=== PATIENT | male | born 1955 | race African-American/Black ===

== ENCOUNTER 2017-10-03 09:37 | Emergency (ER) | payer SELFPAY ==
[2017-10-03] MEDS ORDERED: TETRACAINE HCL 0.5% 2ML OPTH ONE (10:51)
[2017-10-03] MEDS ORDERED: FLUORESCEIN SODIUM 0.6 MG/WRAP ONE (10:51)
--- NOTE | 2017-10-03 11:45 | ER ---
Nurse's Notes [facility] Name: Sae Guevara Age: 62 yrs Sex: Male : 1955 Arrival Date: 10/03/2017 Time: 09:39 Bed 26 Private MD: None, None Diagnosis: Conjunctivitis;Ocular pain, left eye Presentation: 10/03 09:57 Presenting complaint: Patient states: Redness, irritation, and light sensitivity to aj left eye for 2 days. Patient denies getting anything in his eye. Reports eyelid was crusted this AM. Transition of care: patient was not received from another setting of care. Onset of symptoms was October 01, 2017. Initial Sepsis Screen: Does the patient meet any 2 criteria? No. Patient's initial sepsis screen is negative. Does the patient have a suspected source of infection? No. Patient's initial sepsis screen is negative. Care prior to arrival: None. 09:57 Method Of Arrival: Ambulatory 09:57 Acuity: ROD 2 aj Triage Assessment: 09:58 General: Appears in no apparent distress. uncomfortable, Behavior is calm, cooperative, aj appropriate for age. Pain: Complains of pain in left eye. EENT: Sclera/Cornea are reddened in outer aspect of conjuctiva of left eye, iris of left eye and inner aspect of conjunctiva of left eye Reports pain in left eye. Neuro: Level of Consciousness is awake, alert, obeys commands, Oriented to person, place, time, situation, Appropriate for age. Respiratory: Airway is patent Respiratory effort is even, unlabored, Respiratory pattern is regular, symmetrical. Derm: Skin is intact, is healthy with good turgor, Skin is pink, warm \T\ dry. normal. Historical: - Allergies: 09:58 No Known Allergies; aj - Home Meds: 09:58 None [Active]; aj - PMHx: 09:58 Hypertension; aj - PSHx: :58 None; aj - Immunization history:: Adult Immunizations up to date. - Social history:: Smoking status: Patient/guardian denies using tobacco. - Family history:: not pertinent. Screenin:22 Abuse screen: Denies threats or abuse. Denies injuries from another. Nutritional aj1 screening: No deficits noted. Tuberculosis screening: No symptoms or risk factors identified. 12:00 Fall Risk None identified. iw Assessment: 10:22 General: Appears in no apparent distress. uncomfortable, Behavior is calm, cooperative, aj1 appropriate for age. Pain: Complains of pain in left eye Pain does not radiate. Pain currently is 8 out of 10 on a pain scale. Quality of pain is described as throbbing, Alleviated by darkness and keeping eye closed Aggravated by lights and opening his eye. Neuro: Level of Consciousness is awake, alert, obeys commands, Oriented to person, place, time, situation, Speech is normal, Facial symmetry appears normal. Cardiovascular: Patient's skin is warm and dry. Respiratory: Airway is patent Respiratory effort is even, unlabored, Respiratory pattern is regular, symmetrical. GI: No signs and/or symptoms were reported involving the gastrointestinal system. : No signs and/or symptoms were reported regarding the genitourinary system. EENT: Sclera/Cornea are reddened in outer aspect of conjuctiva of left eye, iris of left eye and inner aspect of conjunctiva of left eye Lid(s) swelling noted. Reports drainage from eye, waking up with eye crusted. Derm: No signs and/or symptoms reported regarding the dermatologic system. Skin is pink, warm \T\ dry. normal. Musculoskeletal: No signs and/or symptoms reported regarding the musculoskeletal system. Circulation, motion, and sensation intact. 12:00 Reassessment: Patient appears in no apparent distress at this time. Patient and/or iw family updated on plan of care and expected duration. Pain level reassessed. Patient is alert, oriented x 3, equal unlabored respirations, skin warm/dry/pink. Vital Signs: 09:58 BP 153 / 95; Pulse 60; Resp 18; Temp 98.4; Pulse Ox 98% on R/A; Weight 90.72 kg; Height aj 5 ft. 11 in. (180.34 cm); Pain 8/10; 09:58 Body Mass Index 27.89 (90.72 kg, 180.34 cm) ED Course: 09:39 Patient arrived in ED. mr 09:39 None, None is Private Physician. mr 09:58 Triage completed. aj 09:58 Arm band placed on left wrist. Patient placed in an exam room. aj 10:09 Stanley Plasencia MD is Attending Physician. snehal 10:22 Zulema Mcintosh RN is Primary Nurse. aj1 10:22 Patient has correct armband on for positive identification. Bed in low position. Call aj1 light in reach. Side rails up X 1. 10:22 No provider procedures requiring assistance completed. aj1 11:00 Assist provider with eye exam of left eye. using fluorescein stain, Performed by Stanley Plasencia MD Patient tolerated well. 11:45 Shai Bland MD is Referral Physician. [facility] 12:00 Patient did not have IV access during this emergency room visit. iw Administered Medications: 12:00 Drug: Tobrex 0.3 % 1 application Route: Ophthalmic; Site: left eye; iw Outcome: 11:45 Discharge ordered by . [facility] 12:01 Discharged to home ambulatory. iw 12:01 Condition: good 12:01 Discharge instructions given to patient, Instructed on discharge instructions, follow up and referral plans. pt advised to follow up in Dr. Bland's office when he leaves ER, pt verbalizes understanding Demonstrated understanding of instructions, follow-up care. 12:02 Patient left the ED. iw Signatures: Zulema Mcintosh RN RN ajAmaris Harper RN RN aj Anderson, Corey, MD MD cha Rivera, Maria mr Williams, Irene, RN RN iw
--- NOTE | 2017-10-03 11:46 | EDPHYS ---
Physician Documentation [facility] Name: Sae Guevara Age: 62 yrs Sex: Male : 1955 Arrival Date: 10/03/2017 Time: 09:39 Bed 26 Private MD: None, None ED Physician Stanley Plasencia HPI: 10/03 10:51 This 62 yrs old Black Male presents to ER via Ambulatory with complaints of Eye snehal Swelling. 10:51 The patient is experiencing foreign body sensation, pain, redness, The patient snehal sustained Unknown. to the left eye. Onset: The symptoms/episode began/occurred 2 week(s) ago. Duration: the symptoms are continuous. Aggravated by blinking, closing eye, opening eye, rubbing, Alleviated by nothing. Associated signs and symptoms: Pertinent positives: None. Patient does not utilize any form of vision correction. Severity of symptoms: At their worst the symptoms were mild in the emergency department the symptoms are unchanged. The patient has not experienced similar symptoms in the past. Historical: - Allergies: 09:58 No Known Allergies; aj - Home Meds: :58 None [Active]; aj - PMHx: 09:58 Hypertension; aj - PSHx: 09:58 None; aj - Immunization history:: Adult Immunizations up to date. - Social history:: Smoking status: Patient/guardian denies using tobacco. - Family history:: not pertinent. ROS: 10:51 Constitutional: Negative for fever, chills, and weight loss, ENT: Negative for injury, snehal pain, and discharge, Neck: Negative for injury, pain, and swelling, Cardiovascular: Negative for chest pain, palpitations, and edema, Respiratory: Negative for shortness of breath, cough, wheezing, and pleuritic chest pain, Abdomen/GI: Negative for abdominal pain, nausea, vomiting, diarrhea, and constipation, Back: Negative for injury and pain, : Negative for injury, bleeding, discharge, and swelling, MS/Extremity: Negative for injury and deformity, Skin: Negative for injury, rash, and discoloration, Neuro: Negative for headache, weakness, numbness, tingling, and seizure, Psych: Negative for depression, anxiety, suicide ideation, homicidal ideation, and hallucinations, Allergy/Immunology: Negative for hives, rash, and allergies, Endocrine: Negative for neck swelling, polydipsia, polyuria, polyphagia, and marked weight changes. 10:51 Eyes: Positive for itching, matting, pain, of the left upper eyelid, left outer canthus, left inner canthus and left lower eyelid. Exam: 10:51 Constitutional: This is a well developed, well nourished patient who is awake, alert, snehal and in no acute distress. Head/Face: Normocephalic, atraumatic. ENT: Nares patent. No nasal discharge, no septal abnormalities noted. Tympanic membranes are normal and external auditory canals are clear. Oropharynx with no redness, swelling, or masses, exudates, or evidence of obstruction, uvula midline. Mucous membranes moist. Neck: Trachea midline, no thyromegaly or masses palpated, and no cervical lymphadenopathy. Supple, full range of motion without nuchal rigidity, or vertebral point tenderness. No Meningismus. Chest/axilla: Normal chest wall appearance and motion. Nontender with no deformity. No lesions are appreciated. Cardiovascular: Regular rate and rhythm with a normal S1 and S2. No gallops, murmurs, or rubs. Normal PMI, no JVD. No pulse deficits. Respiratory: Lungs have equal breath sounds bilaterally, clear to auscultation and percussion. No rales, rhonchi or wheezes noted. No increased work of breathing, no retractions or nasal flaring. Abdomen/GI: Soft, non-tender, with normal bowel sounds. No distension or tympany. No guarding or rebound. No evidence of tenderness throughout. Back: No spinal tenderness. No costovertebral tenderness. Full range of motion. Male : Normal genitalia with no discharge or lesions. Skin: Warm, dry with normal turgor. Normal color with no rashes, no lesions, and no evidence of cellulitis. MS/ Extremity: Pulses equal, no cyanosis. Neurovascular intact. Full, normal range of motion. Neuro: Awake and alert, GCS 15, oriented to person, place, time, and situation. Cranial nerves II-XII grossly intact. Motor strength 5/5 in all extremities. Sensory grossly intact. Cerebellar exam normal. Normal gait. Psych: Awake, alert, with orientation to person, place and time. Behavior, mood, and affect are within normal limits. 10:51 Eyes: Periorbital structures: erythema, swelling, that is mild. Vital Signs: 09:58 BP 153 / 95; Pulse 60; Resp 18; Temp 98.4; Pulse Ox 98% on R/A; Weight 90.72 kg; Height aj 5 ft. 11 in. (180.34 cm); Pain 8/10; 09:58 Body Mass Index 27.89 (90.72 kg, 180.34 cm) MDM: 10:09 Patient medically screened. [facility] 10:55 Data reviewed: vital signs, nurses notes. [facility] 10/03 10:51 Order name: Eye Tray; Complete Time: 10:51 [facility] Administered Medications: 12:00 Drug: Tobrex 0.3 % 1 application Route: Ophthalmic; Site: left eye; iw Disposition: 10/03/17 11:45 Discharged to Home. Impression: Conjunctivitis, Ocular pain, left eye. - Condition is Stable. - Discharge Instructions: Conjunctivitis (Viral and Bacterial). - Prescriptions for Tobrex 0.3 % Ophthalmic ointment - apply 1 inch ribbon by OPHTHALMIC route 3 times per day; 3.5 gram. - Medication Reconciliation Form, Thank You Letter, Antibiotic Education, Prescription Opioid Use form. - Work release form (10/03/17 12:06). ag - Follow up: Shai Bland; When: Today; Reason: Recheck today's complaints, Re-evaluation by your physician. - Problem is new. - Symptoms have improved. Signatures: Amaris Baron RN RN aj Anderson, Corey, MD MD cha Williams, Irene, RN RN iw Gallardo, Ana ag Corrections: (The following items were deleted from the chart) 12:02 11:45 10/03/2017 11:45 Discharged to Home. Impression: Conjunctivitis; Ocular pain, iw left eye. Condition is Stable. Discharge Instructions: Conjunctivitis (Viral and Bacterial). Prescriptions for Tobrex 0.3 % Ophthalmic ointment - apply 1 inch ribbon by OPHTHALMIC route 3 times per day; 3.5 gram. and Forms are Medication Reconciliation Form, Thank You Letter, Antibiotic Education, Prescription Opioid Use. Follow up: Shai Bland; When: Today; Reason: Recheck today's complaints, Re-evaluation by your physician. Problem is new. Symptoms have improved. [facility]
[2017-10-03] MEDS ORDERED: TOBRAMYCIN SULF 0.3% OPTH OINT OPTH SCH (12:00)
== END 2017-10-03 12:02 | disposition home or self-care (01) ==
LOC: ER 09:37
DX: H10.9 Unspecified conjunctivitis (principal); I10 Essential (primary) hypertension
CPT/HCPCS: 99283

== ENCOUNTER 2017-12-08 16:24 | Emergency (ER) | payer SELFPAY ==
--- NOTE | 2017-12-08 17:14 | RAD REPORT ---
EXAM DESCRIPTION: RAD - Foot Right 3 View - 12/08/2017 4:56 pm CLINICAL HISTORY: Right foot pain FINDINGS: The bones are osteoporotic. An oblique lucency is present within the medial base of the first proximal phalanx which could either represent a nondisplaced fracture or prominent trabecula. This should correlated clinically. No dislocation is seen
--- NOTE | 2017-12-08 17:21 | ER ---
Nurse's Notes [facility] Name: Sae Guevara Age: 62 yrs Sex: Male : 1955 Arrival Date: 12/08/2017 Time: 16:26 Bed 12 Private MD: None, None Diagnosis: Plantar fasciitis right foot Presentation: 12/08 16:32 Presenting complaint: Patient states: right heel pain that began 1 week ago, pt reports aa5 pain is worse in the morning when getting out of bed. Pt denies known injury. Transition of care: patient was not received from another setting of care. Onset of symptoms was November 2017. Risk Assessment: Do you want to hurt yourself or someone else? Patient reports no desire to harm self or others. Initial Sepsis Screen: Does the patient meet any 2 criteria? No. Patient's initial sepsis screen is negative. Does the patient have a suspected source of infection? No. Patient's initial sepsis screen is negative. Care prior to arrival: None. 16:32 Method Of Arrival: Ambulatory aa5 16:32 Acuity: ROD 4 aa5 Historical: - Allergies: 16:33 No Known Allergies; aa5 - PMHx: 16:33 Hypertension; aa5 - PSHx: 16:33 None; aa5 - Immunization history:: Adult Immunizations unknown. - Social history:: Smoking status: Patient/guardian denies using tobacco. - Ebola Screening: : No symptoms or risks identified at this time. Screenin:35 Abuse screen: Denies threats or abuse. Nutritional screening: No deficits noted. aa5 Tuberculosis screening: No symptoms or risk factors identified. Fall Risk None identified. Assessment: 16:35 General: Appears comfortable, Behavior is calm, cooperative. Pain: Complains of pain in aa5 heel of right foot Pain currently is 4 out of 10 on a pain scale. Quality of pain is described as sharp, throbbing, Pain began 1 week ago Is continuous, Aggravated by increased activity, weight bearing. Neuro: Level of Consciousness is awake, alert, obeys commands, Oriented to person, place, time, situation. Cardiovascular: Heart tones S1 S2 present Rhythm is regular. Respiratory: Airway is patent Respiratory effort is even, unlabored, Respiratory pattern is regular, symmetrical. GI: No signs and/or symptoms were reported involving the gastrointestinal system. : No signs and/or symptoms were reported regarding the genitourinary system. EENT: No signs and/or symptoms were reported regarding the EENT system. Derm: Skin is dry, Skin is normal, Skin temperature is warm. Musculoskeletal: Range of motion: intact in all extremities, Swelling absent. Vital Signs: 16:33 BP 140 / 78; Pulse 62; Resp 16 S; Temp 98.4(TE); Pulse Ox 97% on R/A; Weight 90.72 kg aa5 (R); Height 5 ft. 11 in. (180.34 cm) (R); 16:34 Pain 4/10; aa5 16:33 Body Mass Index 27.89 (90.72 kg, 180.34 cm) aa5 ED Course: 16:26 Patient arrived in ED. mr 16:27 None, None is Private Physician. mr 16:33 Triage completed. aa5 16:33 Arm band placed on. aa5 16:33 Patient has correct armband on for positive identification. aa5 16:34 Laurie Mtz RN is Primary Nurse. aa5 16:35 Gianni Ledezma NP is PHCP. pm1 16:35 Stanley Plasencia MD is Attending Physician. pm1 16:55 Foot Right 3 View XRAY In Process Unspecified. EDMS 16:56 X-ray completed. Portable x-ray completed in exam room. Patient tolerated procedure sw well. 17:18 Itz Cody MD is Referral Physician. pm1 17:30 No provider procedures requiring assistance completed. Patient did not have IV access aa5 during this emergency room visit. Administered Medications: No medications were administered Outcome: 17:21 Discharge ordered by . pm1 17:38 Discharged to home ambulatory. aa5 17:38 Condition: stable 17:38 Discharge instructions given to patient, Instructed on discharge instructions, follow up and referral plans. medication usage, Demonstrated understanding of instructions, follow-up care, medications, Prescriptions given X 2. 17:41 Patient left the ED. aa5 Signatures: Dispatcher [employer] [facility] Monalisa Costa mr Laurie Mtz, RN RN aa5 Debbie Diaz Patrick, NP [employer] pm1
--- NOTE | 2017-12-08 17:21 | EDPHYS ---
Physician Documentation [facility] Name: Sae Guevara Age: 62 yrs Sex: Male : 1955 Arrival Date: 12/08/2017 Time: 16:26 Bed 12 Private MD: None, None ED Physician Stanley Plasencia HPI: 12/08 17:14 This 62 yrs old Black Male presents to ER via Ambulatory with complaints of Right Foot pm1 Pain. 17:14 The patient presents with pain. The complaints affect the arch of right foot and heel pm1 of right foot. Context: The problem was sustained at home, resulted from an unknown cause, the patient can fully bear weight, the patient is able to ambulate, Problem is a result from a previous injury: No. Onset: The symptoms/episode began/occurred 2 week(s) ago. Modifying factors: The symptoms are alleviated by Rest. the symptoms are aggravated by weight bearing. Associated signs and symptoms: Pertinent negatives calf tenderness, fever, nausea, numbness, tingling, vomiting, weakness. Treatment prior to arrival includes: no previous treatment. Severity of symptoms: in the emergency department the symptoms are unchanged. The patient has not experienced similar symptoms in the past. The patient has not recently seen a physician. Historical: - Allergies: 16:33 No Known Allergies; aa5 - PMHx: 16:33 Hypertension; aa5 - PSHx: 16:33 None; aa5 - Immunization history:: Adult Immunizations unknown. - Social history:: Smoking status: Patient/guardian denies using tobacco. - Ebola Screening: : No symptoms or risks identified at this time. ROS: 17:14 Constitutional: Negative for fever, chills, and weight loss, Neck: Negative for injury, pm1 pain, and swelling, Cardiovascular: Negative for chest pain, palpitations, and edema, Respiratory: Negative for shortness of breath, cough, wheezing, and pleuritic chest pain, Abdomen/GI: Negative for abdominal pain, nausea, vomiting, diarrhea, and constipation, Back: Negative for injury and pain. 17:14 Skin: Negative for injury, rash, and discoloration, Neuro: Negative for headache, weakness, numbness, tingling, and seizure. 17:14 MS/extremity: Positive for pain, of the heel of right foot and arch of right foot. Exam: 17:14 Constitutional: This is a well developed, well nourished patient who is awake, alert, pm1 and in no acute distress. Head/Face: Normocephalic, atraumatic. Back: No spinal tenderness. No costovertebral tenderness. Full range of motion. Skin: Warm, dry with normal turgor. Normal color with no rashes, no lesions, and no evidence of cellulitis. 17:14 Musculoskeletal/extremity: Extremities: grossly normal except: noted in the heel of right foot and arch of right foot: tenderness, There is no evidence of decreased ROM, deformity, swelling, ROM: intact in all extremities, Circulation is intact in all extremities. Sensation intact. 17:14 Neuro: Orientation: is normal, Motor: is normal, moves all fours, strength is normal, strength is 5/5 in all extremities. Vital Signs: 16:33 BP 140 / 78; Pulse 62; Resp 16 S; Temp 98.4(TE); Pulse Ox 97% on R/A; Weight 90.72 kg aa5 (R); Height 5 ft. 11 in. (180.34 cm) (R); 16:34 Pain 4/10; aa5 16:33 Body Mass Index 27.89 (90.72 kg, 180.34 cm) aa5 MDM: 16:36 Patient medically screened. pm1 17:14 Data reviewed: vital signs. Data interpreted: Pulse oximetry: on room air is 97 %. pm1 Interpretation: normal. Counseling: I had a detailed discussion with the patient and/or guardian regarding: the historical points, exam findings, and any diagnostic results supporting the discharge/admit diagnosis, radiology results, the need for outpatient follow up, to return to the emergency department if symptoms worsen or persist or if there are any questions or concerns that arise at home. 17:24 ED course: No pain present to right great toe with palpation. No swelling present to pm1 right foot. Likely trabecula. No fracture suspected. 12/08 16:39 Order name: Foot Right 3 View XRAY; Complete Time: 17:24 pm1 Administered Medications: No medications were administered Disposition: 12/08/17 17:21 Discharged to Home. Impression: Plantar fasciitis right foot. - Condition is Stable. - Discharge Instructions: Plantar Fasciitis. - Prescriptions for Naprosyn 500 mg Oral Tablet - take 1 tablet by ORAL route 2 times per day take with food; 30 tablet. Cyclobenzaprine 10 mg Oral Tablet - take 1 tablet by ORAL route every 8 hours As needed; 30 tablet. - Work release form, Medication Reconciliation Form, Thank You Letter, Prescription Opioid Use form. - Follow up: Emergency Department; When: As needed; Reason: Worsening of condition. Follow up: Itz Cody MD; When: 2 - 3 days; Reason: Recheck today's complaints, Continuance of care, Re-evaluation by your physician. - Problem is new. - Symptoms have improved. Addendum: 12/15/2017 15:08 Co-signature as Attending Physician, Stanley Plasencia MD I agree with the assessment and c hancock plan of care. Signatures: Dispatcher [employer] EDStanley Rivas MD MD cha Calderon, Audri, RN RN aa5 Gianni Ledezma, TRAVEL FREIGHT [employer] PASSENGER AGENT [employer]IGHT [employer] PASSENGER AGENT pm1 Corrections: (The following items were deleted from the chart) 12/08 17:41 17:21 12/08/2017 17:21 Discharged to Home. Impression: Plantar fasciitis right foot. aa5 Condition is Stable. Forms are Medication Reconciliation Form, Thank You Letter, Antibiotic Education, Prescription Opioid Use. Follow up: Emergency Department; When: As needed; Reason: Worsening of condition. Follow up: Itz Cody; When: 2 - 3 days; Reason: Recheck today's complaints, Continuance of care, Re-evaluation by your physician. Problem is new. Symptoms have improved. pm1
== END 2017-12-08 17:41 | disposition home or self-care (01) ==
LOC: ER 16:24
DX: M72.2 Plantar fascial fibromatosis (principal); I10 Essential (primary) hypertension
CPT/HCPCS: 99283